=== PATIENT | female | born 1985 | race Caucasian/White ===

== ENCOUNTER 2016-11-01 16:00 | Emergency (ER) | payer OTHER ==
[2016-11-01] MEDS ORDERED: IOPAMIDOL 370 (76%) 100 ML VIAL IV ONE (16:01)
[2016-11-01] MEDS ORDERED: HYDROMORPHONE HCL 1 MG/ML SYRINGE ONE (16:55)
[2016-11-01] MEDS ORDERED: SODIUM CHLORIDE 0.9% 1,000 ML ONE (16:55)
[2016-11-01] MEDS ORDERED: ONDANSETRON 4 MG/2ML 2 ML VIAL ONE (16:55)
[2016-11-01 17:03] LABS: ABSOLUTE NEUTROPHIL COUNT 7.7 K/mm3 (1.8-7.7); BASO % 0.3 % (0.2-1.0); EOS # 0.2 (0.0-0.5); EOS % 1.3 % (0.9-2.9); HEMATOCRIT 39.9 % (37.0-47.0); HEMOGLOBIN 13.3 gm/l (12.0-16.0); IMM NEUT% 0.2 % (0-1); LYMPH % 31.3 % (15-45); MEAN CELL VOLUME 94.5 fl (81.0-99.0); MEAN CORPUSCULAR HEMOGLOBIN 31.5 pg (27.0-31.0); MEAN CORPUSCULAR HGB CONC 33.3 g/dl (33.0-37.0); MEAN PLATELET VOLUME 9.7 fl (7.4-10.4); MONO # 0.8 (0.0-0.8); MONO % 6.2 % (4-12); NEUT % 60.7 % (43-75); PLATELET COUNT 227 K/mm3 (130-400); RED CELL DISTRIBUTION WIDTH 12.8 % (11.5-14.5)
[2016-11-01 17:20] LABS: ALB/GLOB RATIO 1.5 (>1.0); ALBUMIN 3.9 gm/dL (3.5-5.7)
--- NOTE | 2016-11-01 17:40 | CT ---
ABD/PELVIS W/ CON COMPARISON: Gallbladder ultrasound, 11/01/2015 HISTORY: Right lower quadrant pain Technique: No oral contrast. Intravenous injection contrast 100 mL Isovue 370. Using a [employer] Aquilion [address] scanner, images were obtained from the diaphragm to the floor the pelvis. An automated dose reduction technique was used to minimize patient radiation dose. Dose information: CTDIvol (mGy): 15.10 DLP(mGycm): 797.90 FINDINGS: Lung bases: Normal. Inferior mediastinum and heart: Normal. Liver: Normal. Gallbladder: Contracted. Bile ducts: Normal. Pancreas: Normal. Spleen: Normal. Adrenal glands: Normal. Kidneys: Normal. Ureters: Normal Urinary bladder: Normal. Uterus and adnexa: Normal. Blood vessels: Normal Lymph nodes: Normal Stomach: Normal Duodenum: Normal Small intestine: Normal Appendix: Normal Colon: Normal Abdominal wall and supporting musculature: Normal Bones: Normal IMPRESSION: 1. Normal study. Normal appendix. Normal uterus and adnexa. Report was sent to the emergency department electronic medical record system 11/01/2016 at 17:41
[2016-11-01 17:49] LABS: SPECIFIC GRAVITY 1.015 (1.001-1.030); URINE BILIRUBIN NEGATIVE (NEGATIVE); URINE BLOOD NEGATIVE (NEGATIVE); URINE GLUCOSE (UA) NEGATIVE (NEGATIVE); URINE LEUKOCYTE ESTERASE NEGATIVE (NEGATIVE); URINE NITRITE NEGATIVE (NEGATIVE); URINE PROTEIN NEGATIVE (NEGATIVE); URINE UROBILINOGEN NORMAL (0-1 mg/dl)
[2016-11-01 17:50] LABS: URINE APPEARANCE CLEAR; URINE COLOR LIGHT YELLOW
[2016-11-01 21:09] LABS: HCG,QUALITATIVE URINE NEGATIVE
== END 2016-11-01 18:36 | disposition home or self-care (01) ==
LOC: ED 16:00
DX: R10.31 Right lower quadrant pain (principal); K58.9 Irritable bowel syndrome, unspecified; G47.419 Narcolepsy without cataplexy
CPT/HCPCS: 81025; 85025; 80053; 81003; 74177; 96375; 99284 ×2; 96374; 96361; J1170; J2405; J7030; Q9967

== ENCOUNTER 2016-11-10 07:28 | Day surgery (SDC) | payer OTHER ==
[~2016-11-10 07:28] MED LIST: IV START KIT ONE; LACTATED RINGERS 1,000 ML IV SCH; LACTATED RINGERS 1,000 ML ONE; LIDOCAINE 2% (PRES FREE) 5 ML VIAL ONE; PROPOFOL 20 ML IV ONE
--- NOTE | 2016-11-14 09:03 | SURGPATH ---
[facility] [address] [place] [id number] Patient Name: RADHA RYAN MR#: [id number] : 1985 Gender: F Specimen #: [id number] Collected: 11/10/2016 Received: 11/11/2016 Reported: 11/14/2016 Submitting Phys: ANGELIKA MCKINNEY Copy To Phys: [facility] POORNIM[facility] DOE Clinical History / Pre-Operative Diagnosis: RLQ PAIN; RECTAL BLEEDING; RULE OUT ILEITIS AND COLITIS Specimen Source / Surgical Procedure Performed: #1-TI BIOPSY; #2-CECAL; #3-SIGMOID AT 30 CM Interpretation: 1. TERMINAL ILEUM, BIOPSY: - SUBMUCOSAL LIPOMA. - NO EVIDENCE OF MALIGNANCY. 2. CECUM, BIOPSY: - COLONIC MUCOSA SHOWING NO DIAGNOSTIC ABNORMALITIES. - NO EVIDENCE OF SIGNIFICANT INFLAMMATION OR MALIGNANCY. 3. COLON, SIGMOID 30 CM, BIOPSY: - COLONIC MUCOSA SHOWING NO DIAGNOSTIC ABNORMALITIES. - NO EVIDENCE OF SIGNIFICANT INFLAMMATION OR MALIGNANCY. Electronically Signed Out Italo Pablo M.D., Ph.D. Gross Description: #1 The specimen is received in a formalin filled container labeled with the patient's name and "terminal ileum". A single mccormick biopsy is 0.3 cm. Totally embedded in cassette #1. #2 The specimen is received in a formalin filled container labeled with the patient's name and "cecal biopsy". Two mayes-mccormick biopsies are each 0.3 cm. Totally embedded in cassette #2. #3 The specimen is received in a formalin filled container labeled with the patient's name and "sigmoid at 30 cm". Three mayes-mccormick biopsies are 0.2, 0.2 and 0.6 cm. Totally embedded in cassette #3. Aydin Collins Microscopic Description: 1. Examination of multiple levels from the terminal ileum biopsy shows a single fragment of small bowel mucosa with a submucosal collection of mature adipose tissue. There is no evidence of malignancy. 2. Examination of multiple levels from the cecum biopsy shows two fragments of histologically unremarkable colonic mucosa. The architecture is intact without evidence of distortion. There is no evidence of significant inflammation or malignancy. 3. Examination of multiple levels from the sigmoid colon biopsy at 30 cm shows three fragments of histologically unremarkable colonic mucosa. The architecture is intact without evidence of distortion. There is no evidence of significant inflammation or malignancy. 1: [id number] 2: 49313 3: 10387 D17.5
== END 2016-11-10 09:10 | disposition home or self-care (01) ==
LOC: SDC 07:28
PROVIDERS: ATTEND Internal Medicine Gastroenterology
PROC: 0DBH8ZX Excision of Cecum, Via Natural or Artificial Opening Endoscopic, Diagnostic (ICD-10-PCS; principal; 2016-11-10)
PROC: 0DBB8ZX Excision of Ileum, Via Natural or Artificial Opening Endoscopic, Diagnostic (ICD-10-PCS; 2016-11-10)
PROC: 0DBN8ZX Excision of Sigmoid Colon, Via Natural or Artificial Opening Endoscopic, Diagnostic (ICD-10-PCS; 2016-11-10)
DX: K59.8 Other specified functional intestinal disorders (principal); D17.5 Benign lipomatous neoplasm of intra-abdominal organs; K64.1 Second degree hemorrhoids; F17.210 Nicotine dependence, cigarettes, uncomplicated; I10 Essential (primary) hypertension; F41.9 Anxiety disorder, unspecified; F32.9 Major depressive disorder, single episode, unspecified
CPT/HCPCS: 45380; J7120

== ENCOUNTER 2016-12-23 09:46 | Day surgery (SDC) | payer OTHER ==
[~2016-12-23 09:46] MED LIST changes: -LACTATED RINGERS 1,000 ML IV SCH; -LIDOCAINE 2% (PRES FREE) 5 ML VIAL ONE; -PROPOFOL 20 ML IV ONE
[2016-12-23] MEDS ORDERED: LACTATED RINGERS 1,000 ML IV SCH ×2 (10:30→11:15)
[2016-12-23] MEDS ORDERED: FENTANYL 100 MCG/2 ML VIAL ONE (10:53)
[2016-12-23] MEDS ORDERED: DEXAMETHASONE SOD PHOS 4 MG/1 ML VIAL ONE (11:03)
[2016-12-23] MEDS ORDERED: METOCLOPRAMIDE HCL 5 MG/ML 2ML VIAL ONE (11:03)
[2016-12-23] MEDS ORDERED: PROPOFOL 20 ML IV ONE (11:03)
[2016-12-23] MEDS ORDERED: KETOROLAC TROMETHAMINE 30 MG/ML 1 ML VIAL ONE (11:03)
[2016-12-23] MEDS ORDERED: ONDANSETRON 4 MG/2ML 2 ML VIAL ONE (11:03)
[2016-12-23] MEDS ORDERED: FAMOTIDINE 10 MG/ML 2ML VIAL ONE (11:03)
[2016-12-23] MEDS ORDERED: ROCURONIUM BROMIDE 10 MG/ML DOSE IV ONE (11:03)
[2016-12-23] MEDS ORDERED: LABETALOL HCL 5 MG/ML 20ML VIAL IV PRN (11:08)
[2016-12-23] MEDS ORDERED: PROMETHAZINE HCL 25 MG/ML VIAL IM PRN (11:08)
[2016-12-23] MEDS ORDERED: NALOXONE HCL 0.4 MG/ML VIAL IV PRN (11:08)
[2016-12-23] MEDS ORDERED: MEPERIDINE 25 MG/ML SYRINGE IV PRN (11:08)
[2016-12-23] MEDS ORDERED: ONDANSETRON 4 MG/2ML 2 ML VIAL IV PRN ×2 (11:08→12:52)
[2016-12-23] MEDS ORDERED: ATROPINE SULFATE 0.4 MG/1 ML VIAL IV PRN (11:08)
[2016-12-23] MEDS ORDERED: MORPHINE SULFATE 10 MG/ML SYRINGE ONE (11:28)
--- NOTE | 2016-12-23 11:49 | PCMBPN ---
Brief Post Op Note: Date of Procedure: 12/23/16 Start Time: [] Preoperative Diagnosis: 1. [chronic pelvic pain] Postoperative Diagnosis: 1. [Same] Procedure: [diagnostic laparoscopy and adhesiolysis] Surgeon: Leigh Griggs DO Assist:[] Anesthesia: [general] Findings: many dense adhesions consitent with endometriosis] Condition: [stable] Complications: [none] IV Fluids: [1000] mLs of LR [] Urine Output: [30] mLs Estimated Blood Loss: [5] mLs Tourniquet Time: [N/A] Specimens: [N/A] Implants: [] Drains: [N/A]
[2016-12-23] MEDS ORDERED: MORPHINE SULFATE 4 MG/ML SYRINGE ONE ×2 (11:55→12:13)
[2016-12-23] MEDS: MORPHINE SULFATE 4 MG/ML SYRINGE IV PRN ×4 (11:58→12:21)
[2016-12-23] MEDS ORDERED: MEPERIDINE 25 MG/ML SYRINGE ONE (12:00)
[2016-12-23] MEDS ORDERED: MIDAZOLAM HCL 1 MG/ML 2ML VIAL ONE (12:26)
[2016-12-23] MEDS ORDERED: MIDAZOLAM HCL 1 MG/ML 2ML VIAL IV ONE (12:27)
[2016-12-23] MEDS ORDERED: ACETAMINOPHEN 325 MG TABLET PO PRN (12:52)
[2016-12-23] MEDS ORDERED: IBUPROFEN 800 MG TABLET PO PRN (12:52)
[2016-12-23] MEDS ORDERED: KETOROLAC TROMETHAMINE 30 MG/ML 1 ML VIAL IV PRN (12:52)
[2016-12-23] MEDS ORDERED: OXYCODONE/ACETAMINOPHEN 5/325 MG TABLET PO PRN (12:52)
[2016-12-23] MEDS ORDERED: DIPHENHYDRAMINE HCL 50 MG/1 ML VIAL IV PRN (12:52)
[2016-12-23] MEDS ORDERED: OXYCODONE/ACETAMINOPHEN 5/325 MG TABLET ONE (13:47)
--- NOTE | 2016-12-23 16:07 | OP ---
RADHA RYAN [id number] DATE OF : 1985 DATE OF PROCEDURE: 12/23/2016 PREOPERATIVE DIAGNOSIS: Chronic pelvic pain. POSTOPERATIVE DIAGNOSES: 1. Chronic pelvic pain. 2. Endometriosis. PROCEDURE: DIAGNOSTIC LAPAROSCOPY PLUS ADHESIOLYSIS. SURGEON: Dr. Leigh Griggs ANESTHESIA: General. FINDINGS: Many dense adhesions. CONDITION: Stable. COMPLICATIONS: None. IV FLUIDS: 1,000 mL of lactated Ringer's. URINE OUTPUT: 30 mL ESTIMATED BLOOD LOSS: 5 mL SPECIMENS: None. IMPLANTS: None. PROCEDURE: The patient was taken back to the OR with IV fluids running where general anesthesia was easily obtained. She was prepped and draped in a dorsal lithotomy position in a normal sterile fashion. The speculum was placed in the patient's vagina. The cervix was identified and grasped with a single-tooth tenaculum. An Sunriver uterine manipulator was gently inserted into the uterine cavity. Attention was then turned to the patient's abdomen. An approximately 11 mm infraumbilical incision was made. The abdomen was entered under direct visualization with an OptiView port and the abdomen was then insufflated. Intraabdominal survey revealed several dense pelvic adhesions. Additional survey was unremarkable. An additional 5 mm port was placed on the patient's left side under direct visualization. A LigaSure was introduced into the abdominal cavity and the adhesions were taken-down. Upon completion of this, the procedure was then determined to be complete. The abdomen gas was evacuated from the abdominal cavity and the incisions were closed with 4-0 MONOCRYL. The patient was easily aroused from anesthesia and transferred to PACU in stable condition.
== END 2016-12-23 14:05 | disposition home or self-care (01) ==
LOC: SDC 09:46
PROVIDERS: ATTEND Obstetrics & Gynecology
PROC: 0WJJ4ZZ Inspection of Pelvic Cavity, Percutaneous Endoscopic Approach (ICD-10-PCS; principal; 2016-12-23)
DX: R10.2 Pelvic and perineal pain (principal); G89.29 Other chronic pain; N80.9 Endometriosis, unspecified
CPT/HCPCS: 49320; J2175; J3010; J1100; J2270 ×3; A9270; J2765; J1885; J2250; J2405; J7120